=== PATIENT | female | born 1995 | race Caucasian/White ===

== ENCOUNTER 2017-07-15 16:39 | Emergency (ER) | payer BC ==
[~2017-07-15] VITALS: Ht 165.1 cm; Wt 65.8 kg
--- NOTE | 2017-07-15 17:00 | NUR ---
Patient discharged to home in stable conditon. Written and verbal after care instructions given to patient. Patient verbalizes understanding of instructions.
== END 2017-07-15 17:02 | disposition home or self-care (01) ==
LOC: ER 16:40
DX: R05 Cough (principal)
CPT/HCPCS: A4663

== ENCOUNTER 2021-08-31 11:57 | Emergency (ER) | payer BC ==
[~2021-08-31] VITALS: Ht 165.1 cm; Wt 79.4 kg
[2021-08-31] MEDS ORDERED: ACETAMINOPHEN ES 500 MG TABLET ONE (12:47)
[2021-08-31] MEDS ORDERED: ACETAMINOPHEN 325 MG TABLET PO ONE (13:00)
== END 2021-08-31 14:04 | disposition home or self-care (01) ==
LOC: ER 11:57
DX: S16.1XXA Strain of muscle, fascia and tendon at neck level, initial encounter (principal); V49.40XA Driver injured in collision with unspecified motor vehicles in traffic accident, initial encounter; W22.11XA Striking against or struck by driver side automobile airbag, initial encounter; Y92.410 Unspecified street and highway as the place of occurrence of the external cause; S00.33XA Contusion of nose, initial encounter; S70.12XA Contusion of left thigh, initial encounter; S20.212A Contusion of left front wall of thorax, initial encounter; S70.02XA Contusion of left hip, initial encounter; S40.012A Contusion of left shoulder, initial encounter
CPT/HCPCS: 70486; 72125; A4663; A9150